=== PATIENT | male | born 1990 | race Hispanic/Latino ===

== ENCOUNTER 2019-12-04 11:50 | Emergency (ER) | payer OTHER, SELFPAY ==
[2019-12-04 11:58] VITALS: BP 116/69; PULSE 69; RESP 16; TEMP 37.1; O2SAT 97
[2019-12-04] MEDS: SODIUM CHLORIDE 0.9% 1,000 ML 1000 ML IV ×3 (12:15→15:46)
[2019-12-04 12:19] LABS: Add Manual Diff / Slide Review NO; Basophils Absolute Auto 100 /uL (0-100); Basophils Percent Auto 0.4 % (0-2); Eosinophils Absolute Auto 0 /uL (0-450); Eosinophils Percent Auto 0.1 % (2-4); Hematocrit 47.5 % (41-53); Hemoglobin 16.4 g/dL (13.5-17.5); Lymphocytes Absolute Auto 1800 /uL (1100-4500); Lymphocytes Percent Auto 7.5 % (25-40); Mean Corpuscular HGB Conc 34.4 % (30-36); Mean Corpuscular Hemoglobin 29.7 PG (26-34); Mean Corpuscular Volume 86.4 fL (80-100); Monocytes Absolute Auto 1400 /uL (0-900); Monocytes Percent Auto 5.7 % (3-14); Neutrophils Absolute Auto 20600 /uL (1500-7000); Neutrophils Percent Auto 86.3 % (50-75); Platelet Count 306 X10^3/uL (150-400); Red Cell Distribution Width 13.8 % (11.6-14.8); White Blood Cell Count 23.8 X10^3/uL (4.5-11.0)
[2019-12-04 12:23] LABS: INR 1.2 (0.9-1.3); Prothrombin Time 14.2 SECONDS (10.1-12.7)
[2019-12-04 12:28] LABS: Alanine Aminotransferase 53 IU/L (<50); Albumin 5.3 g/dL (3.5-5.0); Albumin Globulin Ratio 1.5 (1.0-2.8); Alkaline Phosphatase 162 U/L (38-126); Amylase 75 U/L (30-110); Aspartate Aminotransferase 60 IU/L (17-59); BUN Creatinine Ratio 19.4 (6-22); Bilirubin Conjugated 0.3 md/dL (0.0-0.3); Bilirubin Total 2.5 mg/dL (0.2-1.3); Bilirubin Unconjugated 1.3 mg/dL (0.0-1.1); Blood Urea Nitrogen 27 mg/dL (9-20); Carbon Dioxide 19 mmol/L (22-32); Chloride 97 mmol/L (98-107); Creatine Kinase 290 U/L (55-170); Estimated Glomerular Filt Rate > 60.0 mL/min (>60); Ethanol (ETOH) < 10 mg/dL; Globulin 3.6 g/dL (1.7-4.1); Glucose 72 mg/dL (70-100); HEMOLYSIS < 15 (0-50); Lipase 34 U/L (23-300); Magnesium 2.2 mg/dL (1.6-2.3); Potassium 4.2 mmol/L (3.4-5.1); Sodium 135 mmol/L (137-145); Total Protein 8.9 g/dL (6.3-8.2)
[2019-12-04 12:29] LABS: Lactate (Lactic Acid) 0.9 mmol/L (0.7-2.1)
--- NOTE | 2019-12-04 12:34 | ED.OVERDOSE ---
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 Magnesium (1.6-2.3) mg/dL Total Bilirubin (0.2-1.3) mg/dL Conjugated Bilirubin (0.0-0.3) md/dL Unconjugated Bilirubin (0.0-1.1) mg/dL AST (17-59) IU/L ALT (<50) IU/L Alkaline Phosphatase (38-126) U/L Total Creatine Kinase 290 H (55-170) U/L CK-MB (CK-2) 2.76 H (<2.37) ng/mL CK-MB (CK-2) Rel Index 1.0 L (1.5-5.0) % Troponin I < 0.012 (0.01-0.034) ng/mL Total Protein (6.3-8.2) g/dL Albumin (3.5-5.0) g/dL Globulin (1.7-4.1) g/dL Albumin/Globulin Ratio (1.0-2.8) Amylase 75 (30-110) U/L Lipase (23-300) U/L Prolactin (3.7-17.9) ng/mL U Opiates 300ng/mL cut (Negative) Ur Oxycodone Screen (Negative) Urine Methadone Screen (Negative) Ur Barbiturates Screen (Negative) U Tricyclic Antidepress (Negative) Ur Phencyclidine Scrn (Negative) Ur Amphetamines Screen (Negative) U Methamphetamines Scrn (Negative) Ur MDMA Scrn (Ecstasy) (Negative) U Benzodiazepines Scrn (Negative) Urine Cocaine Screen (Negative) U Marijuana (THC) Screen (Negative) Ethyl Alcohol ( - 10) mg/dL 12/04/19 12/04/19 12/04/19 Range/Units 12:00 16:35 16:59 WBC 18.1 H (4.5-11.0) X10^3/uL RBC 4.66 (4.5-5.9) X10^6/uL Hgb 13.6 (13.5-17.5) g/dL Hct 40.1 L (41-53) % MCV 86.2 (80-100) fL MCH 29.2 (26-34) PG MCHC 33.9 (30-36) % RDW 13.7 (11.6-14.8) % Plt Count 260 (150-400) X10^3/uL Neut % (Auto) 82.6 H (50-75) % Lymph % (Auto) 8.6 L (25-40) % Hamb[place] % (Auto) 8.2 (3-14) % Eos % (Auto) 0.3 L (2-4) % Baso % (Auto) 0.3 (0-2) % Neut # (Auto) 28086 H (6357-8234) /uL Lymph # (Auto) 1600 (7391-3390) /uL Hamb[place] # (Auto) 1500 H (0-900) /uL Eos # (Auto) 100 (0-450) /uL Baso # (Auto) 100 (0-100) /uL PT (10.1-12.7) SECONDS INR (0.9-1.3) Sodium (137-145) mmol/L Potassium (3.4-5.1) mmol/L Chloride (98-107) mmol/L Carbon Dioxide (22-32) mmol/L BUN (9-20) mg/dL Creatinine (0.66-1.25) mg/dL Estimated GFR (>60) mL/min BUN/Creatinine Ratio (6-22) Glucose (70-100) mg/dL Lactate (0.7-2.1) mmol/L Calcium (8.4-10.2) mg/dL Magnesium (1.6-2.3) mg/dL Total Bilirubin (0.2-1.3) mg/dL Conjugated Bilirubin (0.0-0.3) md/dL Unconjugated Bilirubin (0.0-1.1) mg/dL AST (17-59) IU/L ALT (<50) IU/L Alkaline Phosphatase (38-126) U/L Total Creatine Kinase (55-170) U/L CK-MB (CK-2) (<2.37) ng/mL CK-MB (CK-2) Rel Index (1.5-5.0) % Troponin I (0.01-0.034) ng/mL Total Protein (6.3-8.2) g/dL Albumin (3.5-5.0) g/dL Globulin (1.7-4.1) g/dL Albumin/Globulin Ratio (1.0-2.8) Amylase (30-110) U/L Lipase (23-300) U/L Prolactin 24.0 H (3.7-17.9) ng/mL U Opiates 300ng/mL cut Negative (Negative) Ur Oxycodone Screen Negative (Negative) Urine Methadone Screen Negative (Negative) Ur Barbiturates Screen Negative (Negative) U Tricyclic Antidepress Negative (Negative) Ur Phencyclidine Scrn Negative (Negative) Ur Amphetamines Screen Positive H (Negative) U Methamphetamines Scrn Positive H (Negative) Ur MDMA Scrn (Ecstasy) Negative (Negative) U Benzodiazepines Scrn Negative (Negative) Urine Cocaine Screen Negative (Negative) U Marijuana (THC) Screen Negative (Negative) Ethyl Alcohol ( - 10) mg/dL 12/04/19 Range/Units 16:59 WBC (4.5-11.0) X10^3/uL RBC (4.5-5.9) X10^6/uL Hgb (13.5-17.5) g/dL Hct (41-53) % MCV (80-100) fL MCH (26-34) PG MCHC (30-36) % RDW (11.6-14.8) % Plt Count (150-400) X10^3/uL Neut % (Auto) (50-75) % Lymph % (Auto) (25-40) % Hamblen % (Auto) (3-14) % Eos % (Auto) (2-4) % Baso % (Auto) (0-2) % Neut # (Auto) (4499-4596) /uL Lymph # (Auto) (8494-1630) /uL Hamblen # (Auto) (0-900) /uL Eos # (Auto) (0-450) /uL Baso # (Auto) (0-100) /uL PT (10.1-12.7) SECONDS INR (0.9-1.3) Sodium 134 L (137-145) mmol/L Potassium 4.1 (3.4-5.1) mmol/L Chloride 105 (98-107) mmol/L Carbon Dioxide 20 L (22-32) mmol/L BUN 27 H (9-20) mg/dL Creatinine 1.07 (0.66-1.25) mg/dL Estimated GFR > 60.0 (>60) mL/min BUN/Creatinine Ratio 25.2 H (6-22) Glucose 77 (70-100) mg/dL Lactate (0.7-2.1) mmol/L Calcium 8.0 L (8.4-10.2) mg/dL Magnesium (1.6-2.3) mg/dL Total Bilirubin 0.8 (0.2-1.3) mg/dL Conjugated Bilirubin (0.0-0.3) md/dL Unconjugated Bilirubin (0.0-1.1) mg/dL AST 109 H (17-59) IU/L ALT 71 H (<50) IU/L Alkaline Phosphatase 86 D (38-126) U/L Total Creatine Kinase (55-170) U/L CK-MB (CK-2) (<2.37) ng/mL CK-MB (CK-2) Rel Index (1.5-5.0) % Troponin I (0.01-0.034) ng/mL Total Protein 6.3 (6.3-8.2) g/dL Albumin 3.7 (3.5-5.0) g/dL Globulin 2.6 (1.7-4.1) g/dL Albumin/Globulin Ratio 1.4 (1.0-2.8) Amylase (30-110) U/L Lipase (23-300) U/L Prolactin (3.7-17.9) ng/mL U Opiates 300ng/mL cut (Negative) Ur Oxycodone Screen (Negative) Urine Methadone Screen (Negative) Ur Barbiturates Screen (Negative) U Tricyclic Antidepress (Negative) Ur Phencyclidine Scrn (Negative) Ur Amphetamines Screen (Negative) U Methamphetamines Scrn (Negative) Ur MDMA Scrn (Ecstasy) (Negative) U Benzodiazepines Scrn (Negative) Urine Cocaine Screen (Negative) U Marijuana (THC) Screen (Negative) Ethyl Alcohol ( - 10) mg/dL Point of Care Testing Glucose POC 99 Urine Dip Bedside Urine Glucose Negative Bedside Urine Bilirubin + 1 Bedside Urine Ketone +++ 80 Urine Specific [place] 1.030 Bedside Urine Occult Blood +/- Bedside Urine pH 6.0 Bedside Urine Protein + 30 Bedside Urine Urobilinogen - Negative Bedside Urine Nitrite - Negative Bedside Urine Leukocytes - Negative Esterase Discharge Plan Departure Patient Disposition: Left Against Medical Advice Clinical Impression: Methamphetamine use, Acute dehydration Leukocytosis Qualifiers: Leukocytosis type: other Qualified Code(s): D72.828 - Other elevated white blood cell count Discharge Date/Time: 12/04/19 17:51 Instructions: DI for Dehydration -- Adult, DI for Drug Abuse and Drug Addiction Activity Restrictions/Additional Instructions: Thank you for trusting us with your care today You have elected to leave against medical advice Please follow-up with primary care provider. I have given contact information [facility] health resource conservationist. Referrals: [facility] Resources [Outside] Stand Alone Forms: Against Medical Advice
--- NOTE | 2019-12-04 12:34 | PC.NURSE ---
pt requesting pain medication
--- NOTE | 2019-12-04 12:37 | DI.RAD.S_ITS ---
PROCEDURE: XR SHOULDER RT MIN 2V INDICATIONS: pain sp fall TECHNIQUE: 3 views of the shoulder were acquired. COMPARISON: None. FINDINGS: Bones: No fractures or dislocations. No suspicious bony lesions. Visualized ribs appear intact. Glenohumeral degenerative spurring. Mild AC joint degeneration. Soft tissues: No suspicious soft tissue calcifications. IMPRESSION: No fracture If the patient's pain or other symptoms persist, consider further evaluation with MRI Dictated by: Tao Wilson M.D. on 12/04/2019 at 13:36 Approved by: Tao Wilson M.D. on 12/04/2019 at 13:37
--- NOTE | 2019-12-04 12:37 | DI.CT.S_ITS ---
PROCEDURE: CT HEAD/BRAIN WO CON INDICATIONS: found down, ams TECHNIQUE: Noncontrast 4.5 mm thick angled axial sections acquired from the foramen magnum to the vertex, with coronal and sagittal reformats. For radiation dose reduction, the following was used: automated exposure control, adjustment of mA and/or kV according to patient size. COMPARISON: None. FINDINGS: Image quality: Excellent. CSF spaces: Basal cisterns are patent. No extra-axial fluid collections. 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 Brain: The tiny focus of hyperdensity is seen in the right frontal lobe. No midline shift. No intracranial masses or hemorrhage. Sheets-white matter interface is normal. Skull and face: Calvarium and visualized facial bones are intact, without suspicious lesions. Sinuses: Visualized sinuses and mastoids are clear. IMPRESSION: 1.A tiny indeterminate hyperdensity in the right frontal lobe. Differential diagnosis includes calcification, tiny focus of bleed and artifact. If clinical symptoms persist, a repeat examination or MRI is suggested. 2. 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 3. Otherwise no acute abnormalities. Dictated by: Thomas Rodríguez M.D. on 12/04/2019 at 13:00 Approved by: Thomas Rodríguez M.D. on 12/04/2019 at 13:04
[2019-12-04 12:39] LABS: Troponin I < 0.012 ng/mL (0.01-0.034)
--- NOTE | 2019-12-04 12:42 | DI.RAD.S_ITS ---
PROCEDURE: XR ACUTE ABDOMEN SERIES INDICATIONS: cough, vomiting TECHNIQUE: One view chest and two views of the abdomen were acquired. COMPARISON: None. FINDINGS: Surgical changes and devices: None. Chest: Lungs are clear. Heart size is normal. No pleural effusions. No pneumoperitoneum. Abdomen: Bowel gas pattern is normal. No suspicious calcifications. Visualized solid organ contours appear normal. Bones: No suspicious bony lesions. IMPRESSION: No specific evidence of bowel obstruction seen at this time although if the patient's symptoms do not improve, continued surveillance with abdominal series radiographs could be performed. No free air. Dictated by: Tao Wilson M.D. on 12/04/2019 at 13:31 Approved by: Tao Wilson M.D. on 12/04/2019 at 13:36
[2019-12-04] MEDS: ACETAMINOPHEN 325 MG TABLET 650 MG PO (12:47)
[2019-12-04 12:48] LABS: Creatine Kinase MB 2.76 ng/mL (<2.37)
[2019-12-04 13:13] VITALS: BP 121/75; PULSE 110; RESP 20; O2SAT 96
--- NOTE | 2019-12-04 13:43 | PC.NURSE ---
Pt states that he snorted an unknown substance that he found in the grass the looked like crystal. States it was a very small amount. States that he cannot describe its effect on him as I think I was having heat stroke. Pt in bed watching music videos on his cell phone. Pt requesting hot food from the cafeteria.
--- NOTE | 2019-12-04 14:33 | DI.US.S_ITS ---
PROCEDURE: US ABDOMEN LIMITED INDICATIONS: ELEV LFTS TECHNIQUE: Real-time scanning was performed of the abdominal and retroperitoneal organs, with image documentation. COMPARISON: None. FINDINGS: This is a limited study as the patient was not cooperative during the exam. Liver: Liver is normal in size and homogeneous in echotexture. Gallbladder: The gallbladder wall measures 2 mm in diameter. No stones, sludge, pericholecystic fluid, or sonographic Corral sign. Biliary ducts: Intrahepatic bile ducts are non-dilated. Extrahepatic bile duct caliber measures 3 mm. Normal is 6-7 mm or less in diameter, or 10 mm or less post-cholecystectomy. Pancreas: The pancreas was not visualized. IMPRESSION: 1. Limited study. 2. No cholelithiasis or findings to suggest choledocholithiasis or acute cholecystitis. Dictated by: Milli Freitas M.D. on 12/04/2019 at 15:20 Approved by: Milli Freitas M.D. on 12/04/2019 at 15:22
--- NOTE | 2019-12-04 15:00 | CM.SWNOTE ---
STORE LEADER note STORE LEADER consult requested for patient. Patient is a 29 y/o male who presents to the ED via EMS after eating an unknown substance which he believed to be methamphetamine. Patient reports he had been walking for several days, and had walked over 100 miles in the last 2 days, and presents with dehydration. Patient reports he is trying to make his way to [place], which is where his brother and his mother live. Patient states he can stay on his brother's couch if needed while looking for housing. Patient reports he is trying to get into a program. STORE LEADER asks for clarification and patient reports he's looking for support with housing and mental health. Patient reports he has recently started meeting with a counselor at [facility], but has missed many of the appointments. STORE LEADER and patient discussed housing resources and STORE LEADER provided patient with information on accessing housing resources in [facility] and will provide patient with phone number for [employer] for patient to apply for housing support. Patient denies SI/HI, but is unwilling to discuss mental health and KISHA with STORE LEADER. Patient discusses previously having social security income, but states he let it lapse, and has been trying to reapply. Patient reports getting conflicting information from [facility] regarding the status of his claim, and informs STORE LEADER that he does not currently have support with filing his social security claim. STORE LEADER informs patient that there are several skilled social security attorneys in [place], and will provide the names of multiple attorneys to patient. STORE LEADER asks patient if he current receives ABD income, and patient states he does not know what this is. STORE LEADER provides patient education on ABD benefits, and will provide patient with phone from [facility] to apply. STORE LEADER provides update to provider Roro VASQUEZ. STORE LEADER writes up summary of conversation and provides patient with resources listed above. CATY Walls
[2019-12-04 15:44] VITALS: BP 119/69; PULSE 103; RESP 20; O2SAT 99
[2019-12-04 16:47] LABS: UR Morphine/Opiate cutoff 300 Negative (Negative); Ur Creatinine Normal (Normal); Ur Specific Gravity Normal (Normal); Urine Amphetamines Positive (Negative); Urine Barbiturates Negative (Negative); Urine Benzodiazepines Negative (Negative); Urine Cocaine Negative (Negative); Urine MDMA Negative (Negative); Urine Methadone Negative (Negative); Urine Methamphetamines Positive (Negative); Urine Oxycodone Negative (Negative); Urine Phencyclidine Negative (Negative); Urine Tetrahydrocannabinol Negative (Negative); Urine Tricyclic Antidepressant Negative (Negative); Urine pH Normal (Normal)
[2019-12-04 17:18] LABS: Add Manual Diff / Slide Review NO; Basophils Absolute Auto 100 /uL (0-100); Basophils Percent Auto 0.3 % (0-2); Eosinophils Absolute Auto 100 /uL (0-450); Eosinophils Percent Auto 0.3 % (2-4); Hematocrit 40.1 % (41-53); Hemoglobin 13.6 g/dL (13.5-17.5); Lymphocytes Absolute Auto 1600 /uL (1100-4500); Lymphocytes Percent Auto 8.6 % (25-40); Mean Corpuscular HGB Conc 33.9 % (30-36); Mean Corpuscular Hemoglobin 29.2 PG (26-34); Mean Corpuscular Volume 86.2 fL (80-100); Monocytes Absolute Auto 1500 /uL (0-900); Monocytes Percent Auto 8.2 % (3-14); Neutrophils Absolute Auto 14900 /uL (1500-7000); Neutrophils Percent Auto 82.6 % (50-75); Platelet Count 260 X10^3/uL (150-400); Red Blood Cell Count 4.66 X10^6/uL (4.5-5.9); Red Cell Distribution Width 13.7 % (11.6-14.8); White Blood Cell Count 18.1 X10^3/uL (4.5-11.0)
[2019-12-04 17:20] LABS: Alanine Aminotransferase 71 IU/L (<50); Albumin 3.7 g/dL (3.5-5.0); Albumin Globulin Ratio 1.4 (1.0-2.8); Alkaline Phosphatase 86 U/L (38-126); Aspartate Aminotransferase 109 IU/L (17-59); BUN Creatinine Ratio 25.2 (6-22); Bilirubin Total 0.8 mg/dL (0.2-1.3); Blood Urea Nitrogen 27 mg/dL (9-20); Carbon Dioxide 20 mmol/L (22-32); Chloride 105 mmol/L (98-107); Estimated Glomerular Filt Rate > 60.0 mL/min (>60); Globulin 2.6 g/dL (1.7-4.1); Glucose 77 mg/dL (70-100); Potassium 4.1 mmol/L (3.4-5.1); Sodium 134 mmol/L (137-145); Total Protein 6.3 g/dL (6.3-8.2)
[2019-12-04 17:21] LABS: HEMOLYSIS 60 (0-50)
--- NOTE | 2019-12-04 17:38 | PC.NURSE ---
I found patient with 2x IV's in his arms with fluid going walking through the department. He was making his way towards the ambulance bay doors. I grabbed him and escorted him back to the bathroom and his room. He was refusing to go back into his room and I assured him I would have the provider come and discuss his [facility] departure. Roro Crowe discussed with him why he should stay with us, including the risks of , heart conditions, extreme dehydration. Patient refused to stay after hearing all of this and signed the AMA form. I witnessed Roro explain this.
== END 2019-12-04 17:51 | disposition left against medical advice (07) ==
PROVIDERS: Emergency Provider Nurse Practitioner Family; Referring Provider Nurse Practitioner Family
DX: F15.10 Other stimulant abuse, uncomplicated (principal); E86.0 Dehydration; D72.828 Other elevated white blood cell count
CPT/HCPCS: 36415; 70450; 73030; 74022; 76705; 80053; 80076; 80305; 80320; 81003; 82150; 82550; 82553; 82962; 83605; 83690; 83735; 84146; 84484; 85025; 85610; 87040; 93005; 96360; 96361; 99285